=== PATIENT | male | born 1970 | race Asian ===

== ENCOUNTER 2016-09-29 07:54 | Emergency (ER) | payer BC, OTHER ==
[~2016-09-29] VITALS: Ht 180.3 cm; Wt 109.0 kg
[~2016-09-29 07:54] MED LIST: LISI-167 PO; METO25TA35 PO
[2016-09-29] MEDS ORDERED: METO25TA35 PO (08:33)
[2016-09-29] MEDS ORDERED: LISI-167 PO (08:34)
[2016-09-29] MEDS ORDERED: ASPIRIN 81 MG TABLET CHEW ONE (08:48)
[2016-09-29] MEDS ORDERED: SODIUM CHLORIDE FLUSH 10ML SYR IVF ONE (09:00)
[2016-09-29] MEDS ORDERED: ASPIRIN 81 MG TABLET CHEW PO ONE (09:00)
[2016-09-29 09:03] LABS: ASPARTATE AMINO TRANSFERASE 22 U/L (15-37); BLOOD UREA NITROGEN 16 mg/dL (7-18)
[2016-09-29 09:10] LABS: IS PT STATUS REG ER OR PRE ER? YES
[2016-09-29 11:07] VITALS: BP 140/99
== END 2016-09-29 11:09 | disposition home or self-care (01) ==
LOC: ED 09:11
DX: M19.012 Primary osteoarthritis, left shoulder (principal)
CPT/HCPCS: 36415; 71010; 80053; 84484; 85025; 85651; 93005; 99285